=== PATIENT | male | born 1960 | race African-American/Black ===

== ENCOUNTER 2016-10-11 09:46 | Day surgery (SDC) | payer OTHER ==
[~2016-10-11] VITALS: Ht 167.6 cm; Wt 73.5 kg
[~2016-10-11 09:46] MED LIST: GEMF600T60 PO; METH500T8 PO; OMEG1CAP16 PO; OMEP40CA6 PO
[2016-10-11] MEDS ORDERED: PROPOFOL 20 ML ONE (11:08)
[2016-10-11] MEDS ORDERED: FENTAnyl 50 MCG/ML VIAL ONE (11:08)
[2016-10-11] MEDS ORDERED: MIDAZOLAM 1 MG/ML 2 ML INJ ONE (11:08)
[2016-10-11 11:16] VITALS: Ht 167.6 cm; Wt 73.5 kg
[2016-10-11 11:25] VITALS: BP 111/63; PULSE 64; RESP 16
[2016-10-11] MEDS ORDERED: GABA300C16 PO (11:30)
[2016-10-11] MEDS ORDERED: CHOL100062 PO (11:30)
[2016-10-11] MEDS ORDERED: FOLI-49 PO (11:30)
[2016-10-11 12:25] VITALS: BP 106/68; PULSE 66; RESP 16
--- NOTE | 2016-10-11 18:19 | GILP ---
DATE OF PROCEDURE: 10/11/2016 NAME OF PROCEDURES: Colonoscopy and biopsy. SURGEON: Haris Soriano MD PREOPERATIVE DIAGNOSIS: Screening colonoscopy. POSTOPERATIVE DIAGNOSES 1. Colonoscopy all the way to the cecum. 2. Small right colon polyp was removed using the biopsy forceps. 3. There was no residual polyp in the previous polypectomy site which was tattooed with Sury ink. 4. Internal hemorrhoids. INDICATION FOR THE PROCEDURE: Mr. Jeffrey Bronson is a 56-year-old male patient who had a large sigm oid colon polyp which was removed. The area was tattooed with Sury ink. The patient needed a foll owup exam. The procedure and possible complications are well explained to the patient. The patient understood and consented to the procedure. DESCRIPTION OF PROCEDURE: Under the influence of anesthesia, the colonoscope was carefully introduc ed in the rectum and under direct vision, it was advanced all the way to the cecum. FINDINGS: The patient had a small right colon polyp and it was removed using the biopsy forceps. T he area of the previous polypectomy was identified by tattooing which was done at that time and ther e was no residual polyp identified. The patient was noted to have internal hemorrhoids. He tolerated the procedure very well and there was no complication from the procedure. At the end o f the procedure, he was awake with stable vital signs and he was discharged home to the care of his family. IMPRESSION: Please see postoperative diagnosis. PLAN: 1. Await histopathology report. 2. Next screening colonoscopy in 5 years. Dictated By: HARIS ALEJANDRA/NTS Conf#: [id number] DID#: [id number]
== END 2016-10-11 12:36 | disposition home or self-care (01) ==
LOC: GIL 09:46
PROVIDERS: ATTEND Internal Medicine Gastroenterology
DX: Z12.11 Encounter for screening for malignant neoplasm of colon (principal); K63.5 Polyp of colon; K64.8 Other hemorrhoids; E78.5 Hyperlipidemia, unspecified; J44.9 Chronic obstructive pulmonary disease, unspecified
CPT/HCPCS: 45380; 88305; J2250; J3010; Z7610

== ENCOUNTER 2017-03-05 09:31 | Emergency (ER) | payer OTHER ==
[~2017-03-05] VITALS: Ht 170.2 cm; Wt 75.0 kg
[~2017-03-05 09:31] MED LIST changes: +CHOL100062 PO; +FISH OIL DR 1,1 EAC1 PO; +FOLI-49 PO; +GABA300C16 PO; -OMEG1CAP16 PO
[2017-03-05 09:41] VITALS: Ht 170.2 cm; Wt 75.0 kg
[2017-03-05] MEDS ORDERED: predniSONE 20 MG TAB PO STA (10:35)
[2017-03-05] MEDS ORDERED: PRED20TA PO (10:42)
[2017-03-05] MEDS ORDERED: HYDR-842 PO (10:43)
--- NOTE | 2017-03-05 11:08 | ERD ---
ER Documentation Chief Complaint Date/Time DATE: 03/05/17 TIME: 11:04 Chief Complaint rash back and leg x 4 days; itchiness HPI This is a 56-year-old male without any medical problems presenting to the emergency department complaining of generalized itchiness and dryness to skin for the past 4 days. Patient states that it is very itchy, rating it moderate in severity. Patient denies any new medications, recent traveling or creams. Patient states that he's tried Benadryl last night without any relief. ROS All systems reviewed and are negative except as per history of present illness. Medications Home Meds Active Scripts Hydroxyzine Hcl* (Atarax*) 25 Mg Tab, 25 MG PO Q6H Y for ITCHING, #30 TAB Prov:STEVEN HERNANDEZ PA-C 03/05/17 Prednisone* (Prednisone*) 20 Mg Tab, 40 MG PO DAILY for 4 Days, TAB Prov:STEVEN HERNANDEZ PA-C 03/05/17 Reported Medications Folic Acid* (Folic Acid*) 1 Mg Tablet, 1 MG PO DAILY, TAB 10/11/16 Cholecalciferol* (Vitamin D3*) 1,000 Unit Tablet, 400 UNIT PO DAILY, TAB 10/11/16 Gabapentin* (Gabapentin*) 300 Mg Capsule, 600 MG PO QHS, #60 CAP 10/11/16 Methocarbamol* (Methocarbamol*) 500 Mg Tablet, 500 MG PO BID Y for MUSCLE SPASMS , TAB 05/14/16 Gemfibrozil* (Gemfibrozil*) 600 Mg Tablet, 600 MG PO BID, TAB 05/14/16 [place]-3 Fatty Acids/Fish Oil (Fish Oil 1,000 mg Softgel) 1 Each Capsule.dr, 2 EACH PO BID 05/14/16 Omeprazole* (Omeprazole*) 40 Mg Capsule.dr, 40 MG PO DAILY, #30 CAP 05/14/16 Allergies Allergies: Coded Allergies: No Known Allergy (Unverified , 03/05/17) PMhx/Soc History of Surgery: Yes (COLONOSCOPY, CHILDHOOD HERNIA REPAIR X2, L WRIST FX SX ) Anesthesia Reaction: No Hx Neurological Disorder: No Hx Respiratory Disorders: Yes (COPD) Hx Cardiac Disorders: No Hx Psychiatric Problems: No Hx Miscellaneous Medical Probl: Yes (HIGH CHOLESTEROL) Hx Alcohol Use: Yes (OCC) Hx Substance Use: No Hx Tobacco Use: Yes Smoking Status: Current every day smoker Physical Exam Vitals Vital Signs Date Time Temp Pulse Resp B/P Pulse Ox O2 Delivery O2 Flow Rate FiO2 03/05/17 09:41 98.7 84 18 118/72 98 Physical Exam General: WD/WN, in no apparent distress, non-toxic appearing HENT: NC/AT Eyes: Conjunctiva normal Neck: Supple Pulm: Clear to auscultation, normal labored breathing; no wheezing/rales/ rhonchi heard CV: Good capillary refill GI: Non-distended, no guarding Back: No masses Ext: No clubbing, cyanosis, or edema Neuro: Moves on all fours Skin: Dryness to his skin, and point papules throughout her body, difficult to assess erythema due to patient's skin color Psych: Normal mood Results 24 hrs Current Medications Medications (Trade) Dose Ordered Sig/Sb Route PRN Reason Start Time Stop Time Status Last Admin Dose Admin Prednisone (Prednisone) 60 mg ONCE STAT PO 03/05/17 10:35 03/05/17 10:36 DC 03/05/17 10:42 Procedures/MDM This is a 56-year-old male presenting to the emergency department with generalized itchiness and rash throughout his body, this is likely allergic reaction, dry skin, versus other nonspecific dermatitis. No evidence of anaphylaxis or other emergent conditions. Patient is appropriate to be discharged home with a trial of medications. I discussed with him to follow-up with his primary care physician to get a referral to see a swimming pool installer if this continues. In the ED patient was given 60 mg of prednisone and he was given a prescription for 40 mg prednisone next 4 days. Prescription for Atarax provided. Discussed to the return to the ER for any worsening signs or symptoms. He understands and agreed with this plan Departure Diagnosis: Primary Impression: Rash Condition: Stable Patient Instructions: Self-Care for Skin Rashes, Dermatitis, Non-Specific Referrals: DOCTOR,NOT ON STAFF (PCP) Additional Instructions: FOLLOW UP WITH YOUR PRIMARY CARE PHYSICIAN TOMORROW.Return to this facility if you are not improving as expected. Take all medicines as directed. You have been given a medicine which may cause drowsiness.DO NOT DRIVE OR OPERATE DANGEROUS MACHINERY while taking this medicine! Return to this facility if you are not improving as expected. STEVEN HERNANDEZ PA-C Mar 05, 2017 11:08
== END 2017-03-05 10:59 | disposition home or self-care (01) ==
LOC: FTE 09:31
DX: R21 Rash and other nonspecific skin eruption (principal); J44.9 Chronic obstructive pulmonary disease, unspecified; F17.210 Nicotine dependence, cigarettes, uncomplicated
CPT/HCPCS: J7512; Z7502; 99284